=== PATIENT | female | born 1945 | race Caucasian/White ===

== ENCOUNTER → 2016-05-06 | Outpatient (CLI) | payer MEDICARE, OTHER ==
[~2016-05-06] MED LIST: ACTOS30 M1 PO; ASPIRIN 81MG TA81 MG PO; HUMALOG MIX 75/10 ML SC; IBU-8800 MG PO; KLOR-CON 1010 MEQ PO; MAXZIDE 25 MG-31 TAB PO; MIMVEY 1 MG-0.51 TAB PO; SIMVASTATIN10 MG PO; STOOL SOFTENER100 MG PO; TAMIFLU 75MG CA75 MG PO; VICODIN 5/500 T1 TAB PO; VITAMIN D2000 I1 PO
--- NOTE | 2016-05-06 17:39 | RADIOLOGY REPORT PS360 ---
US PELVIS-TRANSVAGINAL ONLY ORDERING PHYSICIAN : Trenton Treadwell MD PATIENT AGE: 70 years GENDER: Female INDICATION: POST MENOPAUSAL BLEEDING Postmenopausal bleeding TECHNIQUE: . Pelvic ultrasound COMPARISON: FINDINGS :. Uterus.: 7.2 cm length x3.7 x 3 cm Endometrial stripe up to 6 mm AP. Upper normal thickness for age with scant amount of fluid at endometrium towards fundus noted is slight hypoechoic appearance surrounding the endometrium.. .. No fibroids evident .Nabothian cysts. Largest measuring 1.2 cm anterior cervix.. Right ovary 1.5 x 1.4 x 0.8. Left ovary 1.3 x 1 cm x 1.4 cm Ovaries appear normal bilaterally. No fluid in cul-de-sac IMPRESSION: Uterus is normal in size with no fibroids identified Endometrial stripe upper normal with scant amount of fluid at endometrium towards the fundus, -reflects history of bleeding. Ovaries appear normal. No fluid in cul-de-sac
== END ==
LOC: RAD 04-30 10:30
DX: N95.0 Postmenopausal bleeding (principal)

== ENCOUNTER → 2017-01-27 | Outpatient (CLI) | payer MEDICARE, OTHER ==
--- NOTE | 2017-01-27 14:41 | RADIOLOGY REPORT PS360 ---
HIP LT 2-3V W/PELVIS IF PERFOR HISTORY: LEFT HIP PAIN ORDERING PHYSICIAN: Rosalinda Morgan APRN PATIENT AGE: 71 years COMPARISON: None FINDINGS: There are mild osteoarthritic changes involving both hips slightly greater on the left with decrease in the joint space and acetabular osteophyte formation. No fracture or dislocation. No lytic or blastic change. IMPRESSION: Osteoarthritis of the left
== END ==
LOC: RAD 12:04
DX: M25.552 Pain in left hip (principal)